=== PATIENT | male | born 1970 | race Caucasian/White ===

== ENCOUNTER 2021-04-03 15:26 | Emergency (ER) | payer SELFPAY ==
[2021-04-03] MEDS ORDERED: Iopamidol 370 76% 100 ML VIAL IV ONE (15:27)
[2021-04-03 17:45] LABS: Band 1 % (5-11); Eosinophils 1 % (0-10); Hemoglobin 13.8 g/dL (14.0-18.0); Lymphocytes 12 % (21-51); MDiff Complete? YES; Mean Corpuscular HGB CONC 32.9 g/dL (32.0-36.0); Mean Corpuscular Hemoglobin 31.5 pg (27.0-31.0); Mean Corpuscular Volume 95.8 fL (78.0-98.0); Mean Platelet Volume 6.3 fL (7.4-10.4); Monocytes 3 % (0-10); Neutrophil 83 % (42-75); Platelet Count 344 thou/uL (130-400); RBC Distribution Width 12.2 % (11.5-14.5); Red Blood Cell (RBC) Count 4.38 mill/uL (4.70-6.10); White Blood Cell (WBC) Count 12.2 thou/uL (4.8-10.8)
[2021-04-03 17:53] LABS: CRP (Inflammatory) 6.77 mg/dL (= or < 0.5)
[2021-04-03 17:59] LABS: ALT (SGPT) 19 U/L (8-55); AST (SGOT) 36 U/L (5-34); Albumin 3.7 g/dL (3.5-5.0); Alkaline Phosphatase 98 U/L (40-110); Anion Gap 23 mmol/L (10-20); BUN (Urea Nitrogen) Less than 4 mg/dL (8.4-25.7); Bilirubin, Total 0.7 mg/dL (0.2-1.2); Calc. Creatinine Clearance 0 mL/min (70-130); Calcium 9.4 mg/dL (7.8-10.44); Carbon Dioxide 20 mmol/L (22-29); Chloride 82 mmol/L (98-107); Globulin 3.6 g/dL (2.4-3.5); Glucose 61 mg/dL (70-105); Potassium 4.3 mmol/L (3.5-5.1); Protein, Total 7.3 g/dL (6.0-8.3); Sodium 121 mmol/L (136-145)
[2021-04-03] MEDS ORDERED: Dextrose 5 % And 0.9 % NaCl 1,000 ML ONE (18:28)
[2021-04-03 18:47] LABS: Bilirubin Negative (Negative); Blood, Urine Negative (Negative); Clarity Clear (Clear); Glucose, Urine (Dipstick) Negative (Negative); Ketone, Urine 15 mg/dL (Negative); Leukocyte Negative (Negative); Nitrite Negative (Negative); Protein, Urine (Dipstick) Negative (Neg-Trace); Urobilinogen 0.2 mg/dL (Less than 2)
[2021-04-03 18:48] LABS: Specific Gravity, Urine 1.004 (1.002-1.036)
[2021-04-03 18:59] LABS: Cocaine Metabolite Screen Not Detected (NotDetected); Methamphetamine Not Detected (NotDetected); Opiate Screen Not Detected (NotDetected); Phencyclidine (PCP) Not Detected (NotDetected); THC/Cannabinoid Screen Not Detected (NotDetected)
[2021-04-03 19:00] LABS: Amphetamine Not Detected (NotDetected); Barbiturates Screen Not Detected (NotDetected); Benzodiazepine Screen Not Detected (NotDetected); Medtox Control Line Valid? VALID (VALID); Methadone Not Detected (NotDetected); Oxycodone Screen Not Detected (NotDetected); Tricyclic Screen Not Detected (NotDetected)
== END 2021-04-03 19:27 | disposition left against medical advice (07) ==
LOC: MADERS 15:26
DX: J18.9 Pneumonia, unspecified organism (principal); F10.229 Alcohol dependence with intoxication, unspecified; J43.9 Emphysema, unspecified; E87.1 Hypo-osmolality and hyponatremia; F17.210 Nicotine dependence, cigarettes, uncomplicated; Y90.6 Blood alcohol level of 120-199 mg/100 ml
CPT/HCPCS: 36415; 71045; 71260; 80053; 80306; 80307; 81003; 82550; 83605; 84443; 84484; 85025; 86140; 94760; J7042; Q9967

== ENCOUNTER 2021-04-05 18:47 | Emergency (ER) | payer SELFPAY ==
[2021-04-05] MEDS ORDERED: Dextrose 5 %-0.45 % NaCl 1,000 ML ONE (19:27)
[2021-04-05] MEDS ORDERED: Multivit, Adult Inj 10 ML VIAL ONE (19:27)
[2021-04-05] MEDS ORDERED: Thiamine HCl 200 MG/2 ML VIAL ONE (19:27)
[2021-04-05] MEDS ORDERED: Sodium Chloride 0.9% 500 ML ONE (19:27)
[2021-04-05 19:29] LABS: #Basophils 0.1 thou/uL (0.0-0.2); #Monocytes 0.5 thou/uL (0.11-0.59); #Neutrophils 6.6 thou/uL (1.40-6.50); %Eosinophils 0.3 % (0.0-10.0); %Lymphocytes 11.7 % (21.0-51.0); %Monocytes 6.2 % (0.0-10.0); %Neutrophils 80.8 % (42.0-75.0); Hemoglobin 13.1 g/dL (14.0-18.0); Mean Corpuscular HGB CONC 32.8 g/dL (32.0-36.0); Mean Corpuscular Hemoglobin 31.8 pg (27.0-31.0); Mean Corpuscular Volume 96.7 fL (78.0-98.0); Mean Platelet Volume 5.9 fL (7.4-10.4); Platelet Count 265 thou/uL (130-400); RBC Distribution Width 11.9 % (11.5-14.5); Red Blood Cell (RBC) Count 4.11 mill/uL (4.70-6.10); White Blood Cell (WBC) Count 8.2 thou/uL (4.8-10.8)
[2021-04-05 19:35] LABS: INR-International Normal Ratio 1.1
[2021-04-05 19:36] LABS: PTT 34.1 sec (22.9-36.1)
[2021-04-05 19:45] LABS: ALT (SGPT) 15 U/L (8-55); AST (SGOT) 31 U/L (5-34); Albumin 3.4 g/dL (3.5-5.0); Alkaline Phosphatase 86 U/L (40-110); Anion Gap 20 mmol/L (10-20); BUN (Urea Nitrogen) Less than 4 mg/dL (8.4-25.7); Bilirubin, Total 0.9 mg/dL (0.2-1.2); CK (CPK) 101 U/L (30-200); Calc. Creatinine Clearance 0 mL/min (70-130); Calcium 9.3 mg/dL (7.8-10.44); Carbon Dioxide 22 mmol/L (22-29); Chloride 86 mmol/L (98-107); Globulin 3.4 g/dL (2.4-3.5); Glucose 72 mg/dL (70-105); Lipase 107 U/L (8-78); Protein, Total 6.8 g/dL (6.0-8.3); Sodium 124 mmol/L (136-145)
[2021-04-05 20:53] LABS: SARS-CoV-2 NAA Rapid Test Not Detected (NotDetected)
== END 2021-04-05 20:14 | disposition short-term general hospital (02) ==
LOC: MADERS 18:47
DX: E87.1 Hypo-osmolality and hyponatremia (principal); Z20.822 Contact with and (suspected) exposure to COVID-19; F17.210 Nicotine dependence, cigarettes, uncomplicated
CPT/HCPCS: 70450; 71045; 80053; 82140; 82550; 83605; 83690; 84443; 84484; 85025; 85610; 85730; 93005; J3411; J7030; J7042; U0002